=== PATIENT | female | born 1970 | race Hispanic/Latino ===

== ENCOUNTER 2016-07-29 11:36 | Emergency (ER) | payer OTHER ==
[~2016-07-29] VITALS: Ht 162.6 cm; Wt 61.4 kg
[~2016-07-29 11:36] MED LIST: TYL325 PO
[2016-07-29 11:38] VITALS: BP 111/76; PULSE 79; RESP 14; O2SAT 99
--- NOTE | 2016-07-29 12:00 | ED.REPORT ---
HPI-General Illness Date of Service Jul 29, 2016 ED Provider: Leandro Gayle DO The patient is a 46 year old otherwise healthy female who was sent to the emergency department by her PCP for higher level of care. The patient has had right upper back and side pain over the last 4 weeks. Her pain is worse with deep breaths, twisting, and movement. At rest she does not have any pain. She denies any known injury or trauma. She also complains of chills. She had a cough for a few days but this is now resolved. She was prescribed trazodone to help with her pain. She denies radiating pain, lumbar pain, numbness, weakness, problem walking, shortness of breath, cough, hemoptysis, extremity swelling or fever. Nursing Notes Stated Complaint: BACK PAIN/SENT FROM DR OFFICE Chief Complaint: Back Pain or Injury Nursing Notes Reviewed: Yes Allergies: Coded Allergies: No Known Allergies (Verified , 07/22/08) Scheduled Acetaminphen-Expunged Drug, Do Not Renew! (Acetaminphen-Expunged Drug, Do Not Renew!) 325 Mg Tablet 325 MG PO Q4HP TAKE TWO TABLETS EVERY 4 HOURS NEEDED FOR PAIN Scheduled PRN Cyclobenzaprine (Cyclobenzaprine) 10 Mg Tablet 10 MG PO TID PRN PRN Spasm Naproxen (Naproxen) 500 Mg Tab 500 MG PO BID PRN PRN For Pain General Time Seen by MD: 11:59 Chief Complaint Back pain Hx Obtained From: Patient, Daughter Arrived By: Walk-in Sudden in Onset?: Yes Onset Occurred: More than a week ago... Symptom Duration: Since onset Location: : Back Quality: Painful Severity: Current: Mild Severity: Maximum: Moderate Exacerbated by: Moving affected area Relieved by: Rest Recent Healthcare: No recent hospitalization, Recent doctor visit Similar Sx Previous: No PERC Rule All PERC criteria "No", PERC rule satisfied Past Medical History Past Medical History Denies Past Surgical History Hysterectomy Nasal surgery Family History Noncontributory Smoking History Never Smoker Social History Lives on [facility] Alcohol Use: "Social" Drug Use: Denies drug use Other Social History: Good social support, Lives with children Occupation Works at a bar and [employer] Ambulatory Status Independent Review of Systems Full Review of Systems Constitutional: Reports: Chills Respiratory: Reports: Pleuritic pain, Denies: Hemoptysis Musculoskeletal: Reports: Back pain, Denies: Extremity pain, Extremity swelling, Lumbar pain Neurologic: Denies: Bladder dysfunction, Bowel dysfunction, Focal weakness, Numbness, Problem walking Complete sys rev & neg: except as marked. Physical Exam Vital Signs Vital Signs Date Time Temp Pulse Resp B/P Pulse Ox O2 Delivery O2 Flow Rate FiO2 07/29/16 11:38 37 79 14 111/76 99 Room Air Initial VS: Reviewed Head / Eyes: Atraumatic, Normocephalic, PERRL ENT: Mucous membranes moist, Conjunctiva normal, No scleral icterus Neck: Supple, Non-tender, Full range of motion Respiratory: Breath sounds normal, Clear to auscultation, No respiratory distress Cardiovascular: Regular rate & rhythm, Heart sounds normal, Intact distal pulses Abdomen / GI: Soft, Non-tender, No guarding, No rebound, No distention Lymphatic: No lymphadenopathy Extremities: Vascular intact, Neuro intact, No swelling, No tenderness Skin: Warm, Dry, No cyanosis Psychiatric: Mood/affect normal, Behavior normal, Normal thought content General/Constitutional: Awake, Alert, Well appearing Back: No midline vertebral tend, Straight leg raise neg Right paraspinal thoracic tenderness with muscle spasms. Pain with rotational motion and with movement of her right arm. Neurologically intact. Intact motor and sensory function globally. Neurologic: Oriented X3, Speech NL, No motor deficits, No sensory deficits, CN II - XII intact, Cerebellar NL, Memory NL, Gait NL Interpretation & Diagnostics ECG Interpretation Time: 13:17 Interpreted by: ED physician Normal ECG Interpretation: Normal ECG w/ rate of... (58), Normal rate, Normal sinus rhythm, No acute ischemic changes, Normal QRS, Normal axis, Normal intervals, Adequate tracing X-Ray Chest Interpretation View: AP & lat Interpretation / Wet Read by: Wet read ED physician NL X-Ray Chest Findings: No infiltrate, No fracture, No acute disease X-Ray Interpretation Study Performed: Thoracic spine Interpretation / Wet Read by: Wet read ED physician Interpretation: Normal exam, No fracture/dislocation Re-Eval/Medical Decision Med Decision/Clinical Course Overall this seems like muscular back pain, there is no ischemic changes on EKG normal chest x-ray and overall the symptomatology does not sound like acute coronary syndrome, pulmonary embolism, life-threatening pathology of the aorta or spinal cord. There is no suspicious bony lesions on x-ray. Patient is feeling better and will be discharged. Return precautions given. Source of Hx: Old records, Family Time of Eval: 14:03 Re-Evaluation/Progress Note: Rechecked the patient. She is feeling better. Time of Eval: 14:42 Re-Evaluation/Progress Note: Rechecked the patient. Discussed x-ray results, diagnosis, and plan for discharge. All questions were addressed. Counseled Regarding: Diagnosis, Need for follow-up, When/why to return to ED Discharge & Departure Primary Impression: Thoracic back pain Chronicity: acute Back pain laterality: right Qualified Code: M54.6 - Pain in thoracic spine Disposition: Home Discharge Condition All VS Reviewed: Yes Condition: Stable Additional Instructions: Thank you for entrusting us with your care today. Your exam findings are reassuring. Take Naproxen and cyclobenzaprine as prescribed. You can also try applying ice to the painful areas if this helps. Followup with your regular doctor next week for r-evaluation. Return to the emergency department if you develop increased pain, numbness, weakness, problem walking, bladder/bowel incontinence, fever, vomiting, or any other new or concerning symptoms. Referrals: Lars Shi MD (PCP) Scribe Attestation Portions of this note were transcribed by Naa Oglesby. I, Dr. Gayle personally performed the history, physical exam and medical decision-making; I reviewed and confirmed the accuracy of the information in the transcribed note. Signed by: Sherif Eden, 07/29/2016 and [id number]. copies to: Lars Shi MD, Timothy S DO Jul 29, 2016 12:00 Naa Oglesby Jul 29, 2016 12:09
[2016-07-29] MEDS ORDERED: CYCL10TA9 PO (14:50)
[2016-07-29] MEDS ORDERED: NPR500T PO (14:50)
--- NOTE | 2016-07-29 14:52 | DRSVH ---
PROCEDURE: X-RAY THORACIC SPINE, 2 VIEWS INDICATIONS: back pain TECHNIQUE: 2 views of the thoracic spine were acquired. COMPARISON: None. FINDINGS: Bones: No fractures or dislocations. No suspicious bony lesions. 12 pairs of ribs are noted, and a ppear intact where visualized. Mild multilevel degenerative changes noted. Soft tissues: No paravertebral stripe thickening. Cholecystectomy clips noted. IMPRESSION: No fracture. No acute osseous lesion. If symptoms and/or clinical suspicion for patholog y persists, evaluation with MRI may be helpful for further assessment. Dictated by: Ana Salazar MD, PhD on 07/29/2016 at 14:49 Approved by: Ana Salazar MD, PhD on 07/29/2016 at 14:50
--- NOTE | 2016-07-29 14:52 | DRSVH ---
PROCEDURE: X-RAY CHEST, TWO VIEWS ([id number]) INDICATIONS: back pain/chest pain TECHNIQUE: 2 views of the chest were acquired. COMPARISON: None. FINDINGS: Surgical changes and devices: Cholecystectomy clips. Lungs and pleura: No pleural effusions or pneumothorax. Lungs are clear. Mediastinum: Mediastinal contours are normal. Heart size is normal. Bones and chest wall: No suspicious bony abnormalities. Soft tissues appear unremarkable. IMPRESSION: No acute cardiopulmonary disease process. Dictated by: Ana Salazar MD, PhD on 07/29/2016 at 14:50 Approved by: Ana Salazar MD, PhD on 07/29/2016 at 14:50
[2016-07-29 15:07] VITALS: BP 124/74; PULSE 64; RESP 16; O2SAT 99
== END 2016-07-29 15:10 | disposition home or self-care (01) ==
LOC: SED 11:36
DX: M54.6 Pain in thoracic spine (principal); Z90.710 Acquired absence of both cervix and uterus